=== PATIENT | male | born 1980 | race African-American/Black ===

== ENCOUNTER 2017-06-17 23:39 | Emergency (ER) | payer OTHER ==
[~2017-06-17] VITALS: Ht 177.8 cm; Wt 72.0 kg
[~2017-06-17 23:39] MED LIST: CLIN1CAP6 PO; IBUP800T23 PO; PERI0.126 SWISH-SPIT; POLY10O OD; Z.0.NO CURRENT MEDS
[2017-06-17 23:41] VITALS: BP 129/81; PULSE 70; RESP 16; TEMP 98.7; O2SAT 99
--- NOTE | 2017-06-18 01:25 | PD ---
HPI Chief Complaint: Oral / Dental Pain or Problem Time Seen by Provider: 01:23 Travel History International Travel<30 days: No Contact w/Intl Traveler<30days: No Traveled to known affect area: No History of Present Illness HPI Patient comes in complaining of right upper molar dental pain that began about 12 hours ago. Patient took Motrin with minimal to no relief of his symptoms. Pain is worse with opening his mouth wide. Pain radiates throughout right side. Patient reports he tried to see a dentist about this tooth previously, but was unable to afford it. Denies any fevers or difficulty swallowing. PFSH Past Medical History Medical History: Denies Significant Hx Immunizations Current: Yes Past Surgical History Surgical History: No Previous Surgery Social History Alcohol Use: Yes Tobacco Use: Yes Substance Use: No Allergies-Medications (Allergen,Severity, Reaction): Coded Allergies: No Known Allergies (Unverified , 09/29/16) Reported Meds & Prescriptions Reported Meds & Active Scripts Active Naprosyn (Naproxen) 500 Mg Tab 500 Mg PO Q12HR PRN Clindamycin (Clindamycin HCl) 150 Mg Cap 2 Cap PO Q6H 10 Days Review of Systems Except as stated in HPI: all other systems reviewed are Neg Physical Exam Narrative GENERAL: Well-developed, well nourished, in no acute distress, and non-ill appearing. SKIN: Focused skin assessment warm and dry. HEAD: Atraumatic. Normocephalic. EYES: Pupils equal and round. EOMI. No scleral icterus. No injection or drainage. ENT: No nasal bleeding or discharge. Mucous membranes pink and moist. Poor dentition with no visible or palpable abscess. NECK: Trachea midline. No cervical lymphadenopathy. Supple. No nuclear rigidity. RESPIRATORY: No accessory muscle use. No respiratory distress. MUSCULOSKELETAL: No obvious deformities. No clubbing. No cyanosis. No edema. Full range of motion. NEUROLOGICAL: Awake and alert. No obvious cranial nerve deficits. Motor grossly within normal limits. Normal speech. PSYCHIATRIC: Appropriate mood and affect; insight and judgment normal. Data Data Last Documented VS Vital Signs Date Time Temp Pulse Resp B/P Pulse Ox O2 Delivery O2 Flow Rate FiO2 06/17/17 23:41 98.7 70 16 129/81 99 Orders Clindamycin (Cleocin) (06/18/17 01:30) [facility] Medical Decision Making Medical Screen Exam Complete: Yes Emergency Medical Condition: Yes Differential Diagnosis Dental abscess, dental infection, dentalgia, other Narrative Course The patient presented with dental pain. There is no fever. There is no significant facial swelling or evidence of cellulitis. There is poor dentition but no evidence of drainable abscess at this time. There is no evidence of significant deep or invading abscess at this time. The patient will be placed on antibiotics and pain medication. The patient was instructed to follow up with a dentist. The patient was given the dental referral sheet. Warnings were discussed with the patient regarding worsening of infection. The patient is to return if pain worsens, develops progressive swelling or facial redness or fever. The patient agrees with plan. Patient in no obvious distress upon re-evaluation. Patient was asked if they wanted to speak to my attending, which the patient did not wish to do at this time. Any questions/concerns in reference to patient diagnosis/condition discussed and clarified prior to patient's discharge. Reinforced sheer importance of close follow up with patient's primary physician or primary care clinic. Instructed patient to return to ED immediately, if symptoms return/ worsen. Pt showed understanding of above instructions. Further instructions and recommendations were detailed in discharge paperwork. Pt ambulated without difficulty out of ED at discharge. Diagnosis Primary Impression: Infected dental carries Patient Instructions: Dental Abscess (GEN), Dental Caries (ED), General Instructions Additional Instructions: Follow-up with your primary care physician and dentist as soon as possible. Rinse mouth with warm salt water gargles. Take all medication as prescribed. Return to the emergency department if symptoms get worse. Med/Other Pt SpecificInfo: Prescription(s) given Scripts Naproxen (Naprosyn)500 Mg [id number] Mg PO Q12HR PRN (PAIN SCALE 1 TO 10) #14 TAB Ref 0 Prov:Selene Maria MD 06/18/17 Clindamycin 150 Mg Cap2 Cap PO Q6H 10 Days Ref 0 Prov:Selene Maria MD 06/18/17 Disposition: 01 DISCHARGE HOME Condition: Stable [place] Jun 18, 2017 01:25
[2017-06-18] MEDS ORDERED: CLIN1CAP5 PO (01:26)
[2017-06-18] MEDS ORDERED: NAPR500 PO (01:26)
[2017-06-18] MEDS ORDERED: CLINDAMYCIN 150 MG CAP PO ONE (01:30)
== END 2017-06-18 01:47 | disposition home or self-care (01) ==
LOC: NEPD 23:39
DX: K02.9 Dental caries, unspecified (principal); K04.7 Periapical abscess without sinus; Z72.0 Tobacco use
CPT/HCPCS: 99284

== ENCOUNTER 2017-08-14 06:21 | Emergency (ER) | payer OTHER ==
[~2017-08-14 06:21] MED LIST changes: +CLIN1CAP5 PO; -CLIN1CAP6 PO; -IBUP800T23 PO; +NAPR500 PO; -PERI0.126 SWISH-SPIT; -POLY10O OD; -Z.0.NO CURRENT MEDS
[2017-08-14 06:22] VITALS: BP 137/85; PULSE 75; RESP 16; TEMP 98.6; O2SAT 98
== END 2017-08-14 06:44 | disposition left against medical advice (07) ==
LOC: NED 06:21
DX: K08.89 Other specified disorders of teeth and supporting structures (principal); Z72.0 Tobacco use
CPT/HCPCS: 99281